=== PATIENT | female | born 1935 | race Caucasian/White ===

== ENCOUNTER 2020-11-12 16:42 | Emergency (ER) | payer MEDICARE, OTHER ==
[2020-11-12] MEDS ORDERED: ATENOLOL50 MG PO (17:06)
[2020-11-12] MEDS ORDERED: HCTZ 25MG25 MG PO (17:06)
[2020-11-12] MEDS ORDERED: LOSARTAN POTASS50 M1 PO (17:06)
[2020-11-12] MEDS ORDERED: XANAX0.25 M1 PO (17:20)
[2020-11-12 19:10] VITALS: BP 205/99
== END 2020-11-12 19:10 | disposition short-term general hospital (02) ==
LOC: ED 16:42
DX: S12.501A Unspecified nondisplaced fracture of sixth cervical vertebra, initial encounter for closed fracture (principal); S12.601A Unspecified nondisplaced fracture of seventh cervical vertebra, initial encounter for closed fracture; I10 Essential (primary) hypertension; Z79.899 Other long term (current) drug therapy; W01.190A Fall on same level from slipping, tripping and stumbling with subsequent striking against furniture, initial encounter; Y92.039 Unspecified place in apartment as the place of occurrence of the external cause

== ENCOUNTER 2020-12-22 08:52 | Emergency (ER) | payer MEDICARE, OTHER ==
[~2020-12-22] VITALS: Ht 170.2 cm; Wt 70.1 kg
[~2020-12-22 08:52] MED LIST: ATENOLOL50 MG PO; HCTZ 25MG25 MG PO; LOSARTAN POTASS50 M1 PO; XANAX0.25 M1 PO
[2020-12-22 09:22] LABS: BASO # 0.02 (0.02-0.10); EOS # 0.05 (0.04-0.40); EOS % 0.7 % (1.0-5.0); HEMATOCRIT 42.1 % (37.0-47.0); HEMOGLOBIN 13.8 g/dL (12.5-16.0); LYMPH# 0.78 (1.50-4.00); MEAN CELL VOLUME 96 fl (78-100); MEAN CORPUSCULAR HEMOGLOBIN 31 pg (27-31); MEAN CORPUSCULAR HGB CONC 33 g/dL (33-37); MEAN PLATELET VOLUME 8.7 fl (7.4-10.4); MONO # 0.72 (0.20-0.80); NEU # 5.51 (1.40-6.50); PLATELET COUNT 226 K/mm3 (130-400); RED BLOOD COUNT 4.41 M/mm3 (4.10-5.30); RED CELL DISTRIBUTION WIDTH 12.7 % (11.5-14.5); WHITE BLOOD COUNT 7.1 K/mm3 (4.8-10.8)
[2020-12-22] MEDS ORDERED: DITROPAN XL 5MG5 M1 PO (09:23)
[2020-12-22] MEDS ORDERED: CATAPRES-T0.1 MG/24 TD (09:24)
[2020-12-22 09:33] LABS: ALBUMIN 3.7 g/dL (3.4-4.8); POTASSIUM 4.1 mmol/L (3.5-5.1)
[2020-12-22 09:34] LABS: CALCIUM 9.1 mg/dL (8.3-10.5)
[2020-12-22 09:35] LABS: TOTAL PROTEIN 7.1 g/dL (6.2-8.1)
[2020-12-22 09:37] LABS: TOTAL BILIRUBIN 0.5 mg/dL (0.2-1.2)
[2020-12-22 09:49] LABS: TROPONIN-I 0.12 ng/mL (<0.030)
[2020-12-22 11:26] LABS: PROTHROMBIN TIME 9.9 SECONDS (9.0-12.0)
[2020-12-22 15:45] VITALS: BP 119/92
== END 2020-12-22 15:45 | disposition short-term general hospital (02) ==
LOC: ED 08:52
PROVIDERS: Nurse Practitioner
DX: S12.500A Unspecified displaced fracture of sixth cervical vertebra, initial encounter for closed fracture (principal); S12.600A Unspecified displaced fracture of seventh cervical vertebra, initial encounter for closed fracture; I10 Essential (primary) hypertension; I26.92 Saddle embolus of pulmonary artery without acute cor pulmonale; Z20.822 Contact with and (suspected) exposure to COVID-19; X58.XXXA Exposure to other specified factors, initial encounter
CPT/HCPCS: J1644; Q9967

== ENCOUNTER 2021-05-11 18:23 | Emergency (ER) | payer MEDICARE, OTHER ==
[~2021-05-11 18:23] MED LIST changes: +CATAPRES-T0.1 MG/24 TD; +DITROPAN XL 5MG5 M1 PO
[2021-05-11 19:25] LABS: POTASSIUM 4.1 mmol/L (3.5-5.1)
[2021-05-11 19:26] LABS: CALCIUM 8.9 mg/dL (8.3-10.5)
[2021-05-11 20:42] VITALS: BP 178/97
== END 2021-05-11 20:42 | disposition home or self-care (01) ==
LOC: ED 18:23
PROVIDERS: Family Medicine
DX: I10 Essential (primary) hypertension (principal); F41.9 Anxiety disorder, unspecified; Z79.01 Long term (current) use of anticoagulants; Z88.5 Allergy status to narcotic agent; Z79.899 Other long term (current) drug therapy

== ENCOUNTER 2021-05-21 01:47 | Emergency (ER) | payer MEDICARE, OTHER ==
[~2021-05-21] VITALS: Ht 175.3 cm; Wt 69.9 kg
[2021-05-21] MEDS ORDERED: ELIQUIS5 MG PO (02:01)
[2021-05-21 05:47] VITALS: BP 180/85
== END 2021-05-21 05:47 | disposition home or self-care (01) ==
LOC: ED 01:47
DX: S12.500A Unspecified displaced fracture of sixth cervical vertebra, initial encounter for closed fracture (principal); S12.600A Unspecified displaced fracture of seventh cervical vertebra, initial encounter for closed fracture; I10 Essential (primary) hypertension; I26.92 Saddle embolus of pulmonary artery without acute cor pulmonale; F41.9 Anxiety disorder, unspecified; Z79.01 Long term (current) use of anticoagulants; Z79.899 Other long term (current) drug therapy; X58.XXXA Exposure to other specified factors, initial encounter

== ENCOUNTER 2021-07-17 17:18 | Emergency (ER) | payer MEDICARE, OTHER ==
[~2021-07-17] VITALS: Ht 162.6 cm; Wt 68.8 kg
[~2021-07-17 17:18] MED LIST changes: +ELIQUIS5 MG PO
[2021-07-17] MEDS ORDERED: CLONIDINE1 EAC1 TD (17:41)
[2021-07-17] MEDS ORDERED: ALPRAZOLAM0.5 MG PO (17:42)
[2021-07-17] MEDS ORDERED: AMLODIPINE BES2.5 MG PO (17:43)
[2021-07-17 18:15] LABS: BASO # 0.01 K/mm3 (0.02-0.10); HEMATOCRIT 42.3 % (37.0-47.0); HEMOGLOBIN 14.3 g/dL (12.5-16.0); LYMPH# 0.75 K/mm3 (1.50-4.00); MEAN CELL VOLUME 92 fl (78-100); MEAN CORPUSCULAR HEMOGLOBIN 31 pg (27-31); MEAN CORPUSCULAR HGB CONC 34 g/dL (33-37); MEAN PLATELET VOLUME 8.8 fl (7.4-10.4); MONO # 0.42 K/mm3 (0.20-0.80); NEU # 6.55 K/mm3 (1.40-6.50); PLATELET COUNT 246 K/mm3 (130-400); RED BLOOD COUNT 4.62 M/mm3 (4.10-5.30); RED CELL DISTRIBUTION WIDTH 12.9 % (11.5-14.5); WHITE BLOOD COUNT 7.8 K/mm3 (4.8-10.8)
[2021-07-17 18:32] LABS: ALBUMIN 4.4 g/dL (3.4-4.8); POTASSIUM 3.7 mmol/L (3.5-5.1)
[2021-07-17 18:33] LABS: CALCIUM 10.2 mg/dL (8.3-10.5)
[2021-07-17 18:34] LABS: TOTAL PROTEIN 7.9 g/dL (6.2-8.1)
[2021-07-17 18:36] LABS: TOTAL BILIRUBIN 0.8 mg/dL (0.2-1.2)
[2021-07-17 18:38] LABS: PROTHROMBIN TIME 9.9 SECONDS (9.0-12.0)
[2021-07-17 18:56] LABS: TROPONIN-I 1.808 ng/mL (<0.030)
[2021-07-17 18:59] LABS: URINE APPEARANCE HAZY; URINE BILIRUBIN NEGATIVE (NEGATIVE); URINE BLOOD 250 ery/uL (NEGATIVE); URINE COLOR YELLOW; URINE GLUCOSE NEGATIVE (NEGATIVE); URINE KETONE 1+ (NEGATIVE); URINE LEUKOCYTE ESTERASE NEGATIVE (NEGATIVE); URINE NITRATE NEGATIVE (NEGATIVE); URINE PROTEIN(semi-quant) 3+ (NEGATIVE); URINE UROBILINOGEN NORMAL (NORMAL)
[2021-07-17 19:00] LABS: URINE MUCUS PRESENT (NOT PRESENT)
[2021-07-17 21:15] VITALS: BP 182/87
== END 2021-07-17 21:15 | disposition short-term general hospital (02) ==
LOC: ED 17:18
PROVIDERS: Physician Assistant
DX: I21.4 Non-ST elevation (NSTEMI) myocardial infarction (principal); I10 Essential (primary) hypertension; Z20.822 Contact with and (suspected) exposure to COVID-19
CPT/HCPCS: J1644; Q9967

== ENCOUNTER 2021-08-07 11:00 | Outpatient (RCR) | payer MEDICARE, OTHER ==
[~2021-08-07 11:00] MED LIST changes: +ALPRAZOLAM0.5 MG PO; +AMLODIPINE BES2.5 MG PO; +CLONIDINE1 EAC1 TD
== END 2021-08-09 ==
LOC: CARDREHAB
DX: E78.5 Hyperlipidemia, unspecified (principal); I10 Essential (primary) hypertension; I25.10 Atherosclerotic heart disease of native coronary artery without angina pectoris; I25.2 Old myocardial infarction; Z98.890 Other specified postprocedural states

== ENCOUNTER 2021-08-13 16:00 | Outpatient (RCR) | payer MEDICARE, OTHER | END 2021-09-08 | disposition home or self-care (01) | LOC: CARDREHAB | DX: Z48.812 Encounter for surgical aftercare following surgery on the circulatory system (principal); Z95.5 Presence of coronary angioplasty implant and graft; I25.2 Old myocardial infarction ==

== ENCOUNTER 2022-09-01 06:29 | Emergency (ER) | payer MEDICARE, OTHER ==
[~2022-09-01] VITALS: Ht 162.6 cm; Wt 64.7 kg
[2022-09-01] MEDS ORDERED: ATORVASTATIN CA80 MG PO (07:01)
[2022-09-01] MEDS ORDERED: CLOPIDOGREL75 M2 PO (07:01)
[2022-09-01] MEDS ORDERED: TOPCARE ASPIRIN81 M1 PO (07:02)
[2022-09-01 07:25] LABS: BASO # 0.01 K/mm3 (0.02-0.10); EOS # 0.06 K/mm3 (0.04-0.40); HEMATOCRIT 39.8 % (37.0-47.0); HEMOGLOBIN 13.1 g/dL (12.5-16.0); MEAN CELL VOLUME 97 fl (78-100); MEAN CORPUSCULAR HEMOGLOBIN 32 pg (27-31); MEAN CORPUSCULAR HGB CONC 33 g/dL (33-37); MEAN PLATELET VOLUME 9.3 fl (7.4-10.4); MONO # 0.57 K/mm3 (0.20-0.80); NEU # 4.33 K/mm3 (1.40-6.50); PLATELET COUNT 203 K/mm3 (130-400); RED BLOOD COUNT 4.12 M/mm3 (4.10-5.30); WHITE BLOOD COUNT 5.9 K/mm3 (4.8-10.8)
[2022-09-01 07:35] LABS: ALBUMIN 4.1 g/dL (3.4-4.8); POTASSIUM 3.9 mmol/L (3.5-5.1)
[2022-09-01 07:36] LABS: CALCIUM 9.4 mg/dL (8.3-10.5)
[2022-09-01 07:38] LABS: TOTAL PROTEIN 6.9 g/dL (6.2-8.1)
[2022-09-01 07:39] LABS: TOTAL BILIRUBIN 0.6 mg/dL (0.2-1.2)
[2022-09-01 07:48] LABS: D-DIMER 1.79 mg/L FEU (0.15-0.50)
[2022-09-01 11:26] VITALS: BP 121/91
== END 2022-09-01 11:28 | disposition home or self-care (01) ==
LOC: ED 06:29
PROVIDERS: Family Medicine
DX: R07.89 Other chest pain (principal); I10 Essential (primary) hypertension; Z95.5 Presence of coronary angioplasty implant and graft; Z28.310 Unvaccinated for COVID-19

== ENCOUNTER 2024-08-14 02:42 | Emergency (ER) | payer MEDICARE, OTHER ==
[~2024-08-14 02:42] MED LIST changes: +ATORVASTATIN CA80 MG PO; +CLOPIDOGREL75 M2 PO; +TOPCARE ASPIRIN81 M1 PO
[2024-08-14] MEDS ORDERED: POTASSIUM CHLO20 ME4 PO (03:04)
[2024-08-14] MEDS ORDERED: FUROSEMIDE20 MG PO (03:04)
[2024-08-14 03:35] VITALS: BP 155/98
== END 2024-08-14 03:35 | disposition home or self-care (01) ==
LOC: ED 02:42
DX: R04.0 Epistaxis (principal); I48.91 Unspecified atrial fibrillation; Z95.5 Presence of coronary angioplasty implant and graft; Z79.01 Long term (current) use of anticoagulants; Z79.82 Long term (current) use of aspirin